=== PATIENT | female | born 1960 | race Caucasian/White ===

== ENCOUNTER 2019-11-28 01:50 | Outpatient (CLI) | payer OTHER, MEDICAID, SELFPAY ==
[2019-11-28 09:36] LABS: HCT 41.3 % (36.0-46.0); Mean Corp. HGB Concentration 33.9 g/dL (32.0-36.0); Mean Corpuscular Volume 94.3 fL (80-95); Mean Platelet Volume 10.7 fL (8.0-11.0); Platelet Count 299 x1000/uL (130-400); RBC 4.38 m/cumm (4.00-5.20); RBC Distribution Width 13.9 % (11.7-14.6); White Blood Cell Count 8.83 k/cumm (4.4-10.8)
[2019-11-28 10:55] LABS: ALT 62 U/L (14-59); AST 39 U/L (15-37); Albumin 4.5 g/dL (3.4-5.0); Alkaline Phosphatase 84 U/L (46-116); Anion Gap 9.9 mmol/L (3-11); BUN 9 mg/dL (7-18); Bilirubin, Total 0.8 mg/dL (0.2-1.0); CO2 29.1 mmol/L (21.0-32.0); CREATININE 0.47 mg/dL (0.55-1.02); Calcium 9.5 mg/dL (8.5-10.1); Calculated LDL 148 mg/dL (<100); Chloride 94 mmol/L (98-107); Cholesterol 272 mg/dL (<200); Glucose 95 mg/dL (74-106); HDL Cholesterol 109 mg/dL (40-60); Potassium 4.4 mmol/L (3.5-5.1); Sodium 133 mmol/L (136-145); Total Protein 8.1 g/dL (6.4-8.2); Triglyceride 78 mg/dL (<150)
== END 2019-11-28 02:10 ==
PROVIDERS: PCP Family Medicine; Visit Provider Family Medicine
DX: Z00.00 Encounter for general adult medical examination without abnormal findings (principal); I10 Essential (primary) hypertension
CPT/HCPCS: 36415; 80053; 80061; 85027

== ENCOUNTER 2020-01-16 18:51 | Emergency (ER) | payer OTHER, MEDICAID, SELFPAY ==
[2020-01-16] VITALS (20 sets, daily range): BP systolic 146–202; BP diastolic 83–107; PULSE 66–98; RESP 13–20; TEMP 36.7; O2SAT 93–97
--- NOTE | 2020-01-16 19:09 | W.ED.GENAD ---
Discharge Plan Disposition Patient Disposition: HOME Condition: Stable Discharge Details Chief Complaint: Chest Pain Clinical Impression: Chest tightness, Episode of syncope, Closed head injury Primary Care Provider: Gaurav Villa ED Provider: Luis Antonio Goodman Home Meds and New Rx's Prescriptions: Continued hydrochlorothiazide 25 mg tablet 25 mg PO QAM Qty: 90 RF: 3 Discharge Instructions Instructions: Chest Pain (ED) Additional Instructions: follow up with your primary care provider this week and discuss outpatient heart rhythm monitoring return to the emergency department for worsening pain, difficulty breathing or if you feel more ill Medical Decision Making <Janki Cruz DO - Last Filed: 01/16/20 20:06> 1920 -- 59-year-old female with a history of hypertension presents after syncopal episode with head and right shoulder injury early this morning followed by chest tightness and dizziness since this afternoon. BP high at home today. EKG on arrival notes a rate of 93, sinus. Frequent PVCs. Less than [address] depression in V4 and V5. No acute ST elevation. No old EKG to compare. Patient appears mildly anxious. She has right parietal small hematoma and tenderness to palpation of right shoulder without deformity. No focal deficits. Differential diagnosis includes dehydration, hypertensive urgency, ACS, PE, electrolyte abnormality, arrhythmia. Will obtain a CT head and cervical spine, CT chest to rule out PE, give fluids and screening labs. 1999 -- Case endorsed to Dr. Goodman to follow-up on labs and imaging and final disposition. ECG Data Attestation: I personally reviewed and interpreted this ECG (s) as follows: Interpretation: Rate of 93, sinus. Frequent PVCs. Less than [address] depression in V4 and V5. No acute ST elevation. OK 172. QTc 443. QRS 90. <Luis Antonio Goodman MD - Last Filed: 01/16/20 22:27> Patient's labs and imaging shows no acute significant findings. She is asymptomatic at this present time. Discussed observation admission vs delta troponin and d/c and after discussion she would like delta troponin. Will continue to monitor. labs unremarkble, walking around without symptoms. Will d/c and have her f/u with pcp to discuss outpatient holter vs zio, return precautions given Imaging Data Radiologic Study: Attestation: I personally reviewed and interpreted this imaging study as follows: Imaging: CT Scan Radiologist's impression: no acute findings on chest CT Radiologic Study #2: Attestation: I personally reviewed and interpreted this imaging study as follows: Imaging: CT Scan Radiologist's impression: no acute findings on head/cspie Lab Data Lab results reviewed: Yes I reviewed the patient's lab results. ECG Data Attestation: I personally reviewed and interpreted this ECG (s) as follows: Prior ECG tracings: available for review Interpretation: sinus rhythm, ectopic ventricular beats, rate of 82, pr 172, no acute st t wave ischemic findings HPI <Janki Cruz DO - Last Filed: 01/16/20 20:06> General Mode of arrival: ambulatory. Date/Time Provider Initiated Documentation: 01/16/20 19:00. Limitations to Documentation: no limitations. Information obtained by: patient. HPI Narrative: Patient is a 59yo female with a history of hypertension who presents to the ED with a complaint of headache and chest pain. Patient states she awoke in the middle the night to use the bathroom and suddenly passed out hitting her right shoulder and the right side of her head on a marble in her bathroom. She states she was able to get up and walk and go back to bed. She states since she awoke this morning she felt dizzy with lack of appetite. She states she attempted to lay down and then developed substernal chest tightness with radiation to her left arm. She denies any fever, cough, shortness of breath, abdominal pain, nausea, vomiting, visual changes, leg pain or swelling, recent travel or recent surgery. She states she was also concerned about her blood pressure this afternoon and states it was higher than usual at 198/126. Related Data Home Medications Medication Instructions Recorded Confirmed hydrochlorothiazide 25 mg tablet 25 mg PO QAM #90 tab 06/26/19 01/16/20 Previous Rx's Medication Instructions Recorded hydrochlorothiazide 25 mg tablet 25 mg PO QAM #90 tab 06/26/19 Allergies Allergy/AdvReac Type Severity Reaction Status Date / Time codeine AdvReac Intermediate vomitting Verified 01/16/20 19:04 General Stated Complaint: Chest Pain ARNALDO: 3 Review of Systems <DO Nba Garzon Last Filed: 01/16/20 20:06> All systems reviewed & are unremarkable except as noted in HPI and below Constitutional Constitutional: Reports as per HPI, Denies chills, Denies fever(s) and Reports headache(s) Eyes Eyes: Denies blurry vision ENT Ears, Nose, Mouth, and Throat: Reports dizziness, Reports headache(s), Denies sore throat and Denies throat swelling Cardiovascular Cardiovascular: Reports chest pain and Denies dyspnea Respiratory Respiratory: Denies cough and Denies dyspnea Gastrointestinal Gastrointestinal: Denies abdominal pain, Denies diarrhea and Denies vomiting Genitourinary Genitourinary: Denies hematuria and Denies dysuria Musculoskeletal Musculoskeletal: Denies back pain and Denies numbness Integumentary/Breasts Skin/Breast: Denies lesions and Denies rash Neurologic Neurologic: Reports dizziness, Reports headache(s), Denies localized weakness and Denies numbness Allergic/Immunologic Allergic/Immunologic: Denies throat swelling PFSH <Janki Cruz DO - Last Filed: 01/16/20 20:06> Medical History (Updated 01/16/20 @ 20:06 by Janki Cruz DO) High blood pressure (Chronic) History of melanoma (Acute) Melanoma of left lateral thigh (Acute) Social History Smoking/Tobacco Use Status: Former Tobacco Use Quit Date: 10/14/08 Second Hand Exposure: Yes Alcohol Intake: current Alcohol Intake frequency: 3 or more drinks per day Alcohol type: hard liquor Substance use type: does not use Caregiver/Support person: No Household members: other Details: 4 Housing: house Pets and animals: Yes Pets and animals: cat(s) Sexually active: Yes Do you think of yourself as: straight/heterosexual Current gender identity: female What is your relationship status?: How often do you talk on the phone with friends or family?: three or more times per week How often do you get together with friends or relatives?: three or more times per week How often do you attend tenriism or scientologist services?: decline to answer Do you belong to any clubs or organized social groups?: no Panel score (0-1 are the most socially isolated patients): 2 What type of physical activity do you participate in: walking Duration: 15-30 minutes/day Frequency: daily Sylvia/Lutheran: OTHER Special sylvia needs: Yes Seatbelt use: always Drive intox or ride w/intox route salesman and driver: No Do you feel safe at home: Yes Do you feel safe in your relationship?: Yes Exam <Janki Cruz DO - Last Filed: 01/16/20 20:06> Const General: cooperative, healthy appearing and anxious Orientation: alert, awake and oriented x3 HENMT Head: normal to inspection Ears: hearing grossly normal bilaterally, external ears normal and TM's normal bilaterally General nose exam: external nose normal Face and sinus: normal facial exam Mouth: oral mucosae normal Teeth and gingiva: dentition normal Throat: posterior oropharynx normal Eyes General: appearance normal, both eyes and all related structures Eyelids: eyelids normal Pupils: PERRL EOM: EOM intact bilaterally Neck Neck: normal visual inspection Lymphatic: no lymphadenopathy noted Chest Chest: normal inspection of the chest Resp Effort & Inspection: normal respiratory effort and able to speak in complete sentences Auscultation: clear to auscultation bilaterally Cardio Rate: regular rate Rhythm: regular rhythm GI Inspection: normal to inspection Palpation: soft, not firm, no guarding, no hepatosplenomegaly, no masses and nontender Auscultation: normal bowel sounds Back/Spine/Pelvis Cervical Spine: No cervical spinal tenderness Thoracic/Lumbar Spine: thoracic and lumbar spine normal to inspection, No thoracic spinal tenderness and No lumbar spinal tenderness Pelvis: no pain with anterior-posterior compression Skin General skin exam: no rashes or lesions noted Neuro General: patient alert and patient awake Cognition: normal cognition Speech: speech normal Gait: normal gait Motor: muscle tone normal throughout Sensory Exam: no sensory deficits noted Extrem Other: Tenderness to palpation right lateral and posterior shoulder. Full range of motion without pain. No deformities noted. No edema, ecchymosis or erythema noted. Right radial pulse intact. Left upper extremity and bilateral lower extremities with normal range of motion without deformity or evidence of trauma. Psych Appearance: grossly normal Mental Status: mental status grossly normal Speech and Movement: speech and movement normal Affect: normal affect Thought Process: normal Course <Janki Cruz DO - Last Filed: 01/16/20 20:06> Vital Signs Vital signs: Vital Signs Temperature 98.1 F 01/16/20 19:00 Pulse 95 H 01/16/20 19:00 Respiratory Rate 18 01/16/20 19:00 Blood Pressure 202/101 H 01/16/20 19:00 Pulse Oximetry 97 01/16/20 19:00 Temperature 98.1 F 01/16/20 19:00 Temperature Source Skin 01/16/20 19:00 Pulse 95 H 01/16/20 19:00 Respiratory Rate 18 01/16/20 19:00 Respiratory Effort Non-Labored 01/16/20 19:05 Blood Pressure 202/101 H 01/16/20 19:00 Pulse Oximetry 97 01/16/20 19:00 End Tidal Co2 6 01/16/20 19:00 Sign Out <Janki Cruz DO - Last Filed: 01/16/20 20:06> Sign Out Data: Sign Out Comment: Case endorsed to Dr. Goodman to follow-up on labs and imaging and final disposition. If work-up negative and patient cleared for discharge, would likely need Holter monitor referral for Zio patch as outpatient. Last updated by Janki Cruz DO at 01/16/20 19:43
[2020-01-16 19:22] LABS: Abs Immature Grans 0.02 k/cumm (0.0-0.09); Absolute Eosinophil Count 0.02 k/cumm (0.0-0.7); Absolute Lymphocyte Count 1.87 k/cumm (1.2-3.4); Absolute Monocyte Count 0.82 k/cumm (0.11-0.7); Absolute Neutrophil Count 8.55 k/cumm (1.2-6.7); Basophils % 0.4; Eosinophils % 0.2; HCT 41.6 % (36.0-46.0); HGB 14.7 g/dL (12.0-15.5); Immature Grans % 0.2 %; Lymphocytes % 16.5; Mean Corp. HGB Concentration 35.3 g/dL (32.0-36.0); Mean Corpuscular Hemoglobin 32.5 pg (27.0-33.0); Mean Corpuscular Volume 91.8 fL (80-95); Mean Platelet Volume 10.2 fL (8.0-11.0); Monocytes % 7.2; Neutrophils % 75.5; Platelet Count 302 x1000/uL (130-400); RBC 4.53 m/cumm (4.00-5.20); RBC Distribution Width 13.3 % (11.7-14.6); White Blood Cell Count 11.32 k/cumm (4.4-10.8)
[2020-01-16 19:23] LABS: Absolute Basophil Count 0.05 k/cumm (0.0-0.2)
--- NOTE | 2020-01-16 19:30 | DI.CT_ITS ---
EXAM: CT CHEST PE CTA CLINICAL HISTORY: chest tightness, syncope. TECHNIQUE: Imaging Protocol: Axial CT angiography was performed with multi-slice acquisition and mu lti-planar and/or 3D reconstructions. CONTRAST MATERIAL: Intravenous: Omnipaque 350 Contrast volume:122 mL COMPARISON: No exams were available for comparison FINDINGS: Pulmonary Arteries: No evidence of filling defect to suggest pulmonary emboli. Tracheobronchial tree: Patent where visualized. Mediastinum and Lauren: No dominant adenopathy or fluid collection. Pulmonary parenchyma: No consolidation or dominant measurable mass. No architectural distortion. Pleura: No effusion or pneumothorax. Heart: The heart is not dilated. No coronary artery calcifications are seen. No pericardial effusion. Aorta: Thoracic aorta non-dilated. No dissection. Upper abdomen: Fatty infiltration of the liver. Bones: Normal. IMPRESSION: No evidence of pulmonary embolism, thoracic aortic dissection or aneurysm. DATA REPOSITORY: All CT scans at this facility are submitted to the National Radiology Data Registry (NRDR) Dose Index Registry (DIR) with the [employer] (ACR). RADIATION OPTIMIZATION: All CT scans at this facility use at least one of these dose optimization te chniques: automated exposure control; mA and/or kV adjustment per patient size (includes targeted exa ms where dose is matched to clinical indication); or iterative reconstruction.
--- NOTE | 2020-01-16 19:30 | DI.CT_ITS ---
EXAM: CT HEAD CERVICAL SPINE WO CLINICAL HISTORY: s/p fall, hematoma R parietal scalp. TECHNIQUE: Imaging Protocol: Axial computed tomography images with coronal and sagittal reformatted images were created and reviewed COMPARISON: No exams were available for comparison FINDINGS: CT Head: Ventricles and Extra axial spaces: Normal in size and morphology for the patient's age. Hemorrhage: None. Cerebral parenchyma: Normal. Midline shift: None. Brainstem/Cerebellum: Normal. Calvarium: Normal. Visualized Paranasal sinuses/Mastoids: Clear. Soft Tissues: Unremarkable. CT Cervical Spine: Bones: No acute fracture or subluxation. Multilevel degenerative changes are present throughout the c ervical spine. Soft Tissues: Unremarkable. Lung Apices: Clear. IMPRESSION: 1. No acute intracranial process. 2. No acute fracture or subluxation in the cervical spine. RADIATION DOSE DELIVERED: DATA REPOSITORY: All CT scans at this facility are submitted to the National Radiology Data Registry (NRDR) Dose Index Registry (DIR) with the [employer] (ACR). RADIATION OPTIMIZATION: All CT scans at this facility use at least one of these dose optimization te chniques: automated exposure control; mA and/or kV adjustment per patient size (includes targeted exa ms where dose is matched to clinical indication); or iterative reconstruction.
[2020-01-16 19:38] LABS: ALT 55 U/L (14-59); AST 39 U/L (15-37); Albumin 4.6 g/dL (3.4-5.0); Alkaline Phosphatase 84 U/L (46-116); Anion Gap 11.2 mmol/L (3-11); BUN 7 mg/dL (7-18); Bilirubin, Total 0.5 mg/dL (0.2-1.0); CO2 29.8 mmol/L (21.0-32.0); CREATININE 0.58 mg/dL (0.55-1.02); Calcium 9.7 mg/dL (8.5-10.1); Chloride 89 mmol/L (98-107); Glucose 105 mg/dL (74-106); Magnesium 1.9 mg/dL (1.8-2.4); Potassium 3.3 mmol/L (3.5-5.1); Sodium 130 mmol/L (136-145); Total Protein 8.8 g/dL (6.4-8.2)
[2020-01-16 19:40] LABS: Troponin I < 0.05 ng/Ml (<0.06)
[2020-01-16] MEDS: Normal Saline 1,000 ML 1000 ML IV (19:41)
[2020-01-16] MEDS: Omnipaque 350 MG/ML 100 ML BTL IJ (19:50)
--- NOTE | 2020-01-16 20:35 | DI.VRAD_ITS ---
PROCEDURE INFORMATION: Exam: CT Head Without Contrast Exam date and time: 01/16/2020 7:35 PM Age: 59 years old Clinical indication: Injury or trauma; Initial encounter; Patient HX: S/P fall, hematoma R parietal scalp TECHNIQUE: Imaging protocol: Computed tomography of the head without contrast. COMPARISON: No relevant prior studies available. FINDINGS: Brain: No intracranial hemorrhage or extra-axial fluid collection. No evidence of mass effect or midline shift. Smith-white matter differentiation is intact. Ventricles: No ventriculomegaly. Bones/joints: No acute osseus lesion or fracture. Sinuses: Unremarkable as visualized. Mastoid air cells: Unremarkable. Soft tissues: Unremarkable. IMPRESSION: No acute intracranial pathology. PROCEDURE INFORMATION: Exam: CT Cervical Spine Without Contrast Exam date and time: 01/16/2020 7:35 PM Age: 59 years old Clinical indication: Injury or trauma; Initial encounter; Patient HX: S/P fall, hematoma R parietal scalp TECHNIQUE: Imaging protocol: Computed tomography images of the cervical spine without contrast. COMPARISON: No relevant prior studies available. FINDINGS: Vertebrae: Vertebral body heights are maintained. No locked or perched facets. Multilevel facet arthropathy. No acute cervical spine fracture. The dens is intact. Atlanto-axial intervals are normal. Discs/Spinal canal/Neural foramina: Multilevel degenerative changes with intervertebral disc height loss and osteophyte formation. No significant spinal stenosis. Soft tissues: Unremarkable. Lungs: Lung apices are clear. IMPRESSION: No acute cervical spine fracture. Dictated and Authenticated by: Sam Mcghee MD. Ordering:ENRIQUE Shearer MD
--- NOTE | 2020-01-16 20:41 | DI.VRAD_ITS ---
PROCEDURE INFORMATION: Exam: CT Angiography Chest With Contrast Exam date and time: 01/16/2020 7:35 PM Age: 59 years old Clinical indication: Other: Chest tightness TECHNIQUE: Imaging protocol: Computed tomographic angiography of the chest with intravenous contrast. 3D rendering: MIP and/or 3D reconstructed images were created by the technologist. COMPARISON: No relevant prior studies available. FINDINGS: Pulmonary arteries: Normal. No pulmonary emboli. Aorta: Unremarkable. No aortic aneurysm. No aortic dissection. Lungs: Unremarkable. No consolidation. No masses. Pleural space: Unremarkable. No pneumothorax. No pleural effusion. Heart: Unremarkable. No cardiomegaly. No pericardial effusion. Liver: Hepatic steatosis. Lymph nodes: Unremarkable. No enlarged lymph nodes. Bones/joints: Unremarkable for age. No acute fracture. Soft tissues: Unremarkable. IMPRESSION: No acute findings. Dictated and Authenticated by: Monae Rodrigez MD. Ordering:ENRIQUE Shearer MD
[2020-01-16 22:19] LABS: Troponin I < 0.05 ng/Ml (<0.06)
--- NOTE | 2020-01-17 03:51 | NUR.NOTE ---
REFERRAL FAXED TO PCP FOR FOLLOW UP CARE Nursing Note:
--- NOTE | 2020-01-17 21:57 | NUR.NOTE ---
REFERRAL FAXED TO PCP FOR FOLLOW UP CARE Nursing Note:
== END 2020-01-16 22:40 | disposition home or self-care (01) ==
PROVIDERS: Physician Assistant; Emergency Provider Emergency Medicine; PCP Family Medicine
DX: R07.89 Other chest pain (principal); R55 Syncope and collapse; S09.90XA Unspecified injury of head, initial encounter; W01.10XA Fall on same level from slipping, tripping and stumbling with subsequent striking against unspecified object, initial encounter; I10 Essential (primary) hypertension
CPT/HCPCS: 71275; 80053; 93005; 96360; 99285; 70450; 72125; 83735; 84484; 85025; 93010; 99284; J3490

== ENCOUNTER 2020-01-26 00:13 | Outpatient (CLI) | payer OTHER, SELFPAY ==
--- NOTE | 2020-01-26 06:45 | DI.NM_ITS ---
APPROVED REPORT Exam: Exercise Treadmill Patient Location: Out-Patient Room/Bed: Stress Nurse: Isabel Edge RN BMI: 24.44 Baseline Rhythm: Sinus Rhythm Comment: Frequent PVC's Indications: Patient presented to the ER on 01/16/2020 after falling in the middle of the night in the bathroom with brief loss of consciousness then midmorning experienced midsternal chest pain (???rock on chest???), left upper arm pain (???like tired muscles from lifting weights???), head fogginess, vi harman changes (???black on sides???) and shakiness which lasted for approximately nine hours then went away on its own. She reports it is now a week later and she is finally starting to feel better overa ll. Medical History Cardiac Medications: Hydrochlorothizide, Lisinopril. Allergies: Codeine Cardiac Risk Factors: FHX of CAD, HTN. Previous Cardiac Procedures: None Pretest Chest Pain Characteristics: None Exercise History: Physically active Physical Disabilities: None Lung Sounds: Clear to auscultation Heart Sounds: Occasionally Irregular. Stress Test Details Test: Exercise stress testing was performed using a Adonay protocol. Nuclear Acquisition: Rest Tc-99m/Stress Tc-99m 1 day Rest Isotope: Tc-99m Sestamibi. Dose: 10.6 Date: 01/26/2020 Injection Time: 1130 Stress Isotope: Tc-99m Sestamibi. Dose: 1325 Date: 01/26/2020 Injection Time: 1325 HR Resting HR Supine: 70 bpm Max Heart Rate (APMHR): 159 bpm Resting HR Standin bpm Target HR (85% APMHR): 135 bpm Max HR Achieved: 162 bpm % of APMHR: 101 HR response to stress: Normal HR response to stress BP Resting BP Supine: 168/110 mmHg Resting BP Standin/110 mmHg Max BP: 210/130 mmHg Comment: DBP hypertensive at baseline. ECG Resting ECG: Sinus Rhythm Ectopy: Frequent PVC's Stress ECG: Sinus Tachycardia ST Change: No significant ST segment changes noted. Arrhythmia: VPC's Recovery ECG: Sinus Rhythm Recovery ST Change: Normal Comment: Recovery: Numerous PVC's and intermitent Ventricular Bigeminy noted. Clinical Reason for Termination: Hypertensive DBP. Stress Symptoms: None Exercise duration: 4 min1 sec Highest Stage Reached: Stage 2: 2.5 mph at 12% grade. Exercise capacity: 5.83 METs Functional Capacity: Moderately diminished capacity Stress ECG Conclusion 1. Patient exercised for 4 minutes (6 METS). Rate-pressure product was 30,000. 2. Patient had no symptoms of ischemia during the stress portion of this exam. 3. The patient had a hypertensive response to stress. Stress Test Summary STAGE Time (mins) Speed (mph) Grade (%) HR BP SYMPTOMS METS Supine 70 168/110 Standing 81 168/110 1 3 1.7 10 150 190/130 4.6 1 min recovery 140 210/130 3 min recovery 104 208/110 6 min recovery 92 170/96 9 min recovery 87 170/118 MPI Conclusion Ejection fraction was 49% with stress. There were no wall motion abnormalities. There is no evidence of ischemia or infarction on the perfusion portion of this exam. This represents a normal SPECT imaging study. Radiologist Interpretation Radiologist agrees with Resource Management Specialist's Interpretation. Radiologist Interpretation by: Flavia Melgar MD Interpretation Date/Time: 01/28/2020 12:19:54
--- NOTE | 2020-01-26 10:34 | DI.US_ITS ---
APPROVED REPORT EXAM: Comprehensive 2D, Doppler, and color-flow Echocardiogram Patient Location: In-Patient Gray Mixing Operator: Kiara Quinones RDCS (AE) Indications: Chest pain, Sycope, HTN Conclusion Left Ventricle : The left ventricle is normal size. The left ventricular systolic function is normal. The left ventricular ejection fraction is within the normal range. There is normal left ventricular wall thickness. There is normal LV segmental wall motion. The left ventricular diastolic function is normal. LVEF is 55-60%. Right Ventricle : The right ventricle is normal size. The right ventricular systolic function is norm al. Atria : The left atrium size is normal. The right atrium size is normal. Valves: There are no hemodynamically significant valvular lesions. Great Vessels : IVC is normal in size and collapses >50% with inspiration. The RVSP is 27.7 mmHg. Please see remainder of report for additional details. There is no prior echocardiogram available for comparison. Wall motion Left Ventricle The left ventricle is normal size. The left ventricular systolic function is normal. The left ventric ular ejection fraction is within the normal range. There is normal left ventricular wall thickness. T here is normal LV segmental wall motion. The left ventricular diastolic function is normal. There is no ventricular septal defect visualized. LVEF is 55-60%. Right Ventricle The right ventricle is normal size. The right ventricular systolic function is normal. Atria The left atrium size is normal. The right atrium size is normal. The interatrial septum is intact wit h no evidence for an atrial septal defect. Aortic Valve The aortic valve is normal in structure. Aortic valve is trileaflet. There is no aortic valvular sten osis. No aortic regurgitation is present. Mitral Valve The mitral valve is normal in structure. No evidence of mitral valve stenosis. Trace mitral regurgita tion. Tricuspid Valve The tricuspid valve is normal in structure. There is no tricuspid valve stenosis. Trace tricuspid reg urgitation. Pulmonic Valve The pulmonary valve is normal in structure. There is no pulmonic valvular stenosis. There is no pulmo ramon valvular regurgitation. Great Vessels The aortic root is normal in size. The ascending aorta is normal in size. IVC is normal in size and c ollapses >50% with inspiration. The RVSP is 27.7 mmHg. Pericardium There is no pericardial effusion. There is no pleural effusion. 2D Dimensions IVSD d PLAX 0.77 cm F: 0.6-1.0 LV Vol A2C d MOD 60.4 mL LVPW d PLAX 0.78 cm F: 0.6 - 1.0 LV Vol A4C d MOD 82.7 mL LVID d PLAX 4.25 cm F: 3.8 - 5.2 LA vol/ BSA A2C s A-L 26.5 mL/m2 LVDs 2.90 cm F: 2.2 - 3.5 LA vol/ BSA A4C s A-L 21.9 mL/m2 Ao Root d 2.71 cm F: 2.7 - 3.3 LA Vol/ BSA Biplane s A-L 24.1 mL/m2 RA Area A4C 12.55 cm2 LA Area A4C s MOD 14.30 cm2 RA Vol/ BSA A4C s A-L 17.4 mL/m2 LA Area A2C s MOD 15.70 cm2 Ao Asc Diam d 3.12 cm F: 2.3 - 3.1 LV EF A4C MOD 53.8 % LV EF Teichholz 58.7 % LV EF A2C MOD 60.9 % LVEF (Roldan's) 56.73 % F: 54 - 74 LV EF Biplane MOD 56.7 % LV Volume 57.98 mL F: 46 - 106 LV Volume Index 34.92 mL/m2 F: 29 - 61 LV Vol Biplane MOD 72.4 mL FS 30.75 % M-Mode TAPSE 1.89 cm (M/F) <1.7 LV Diastology MV E' medial 0.054 (>0.07 m/s) E/A Ratio 0.7 LV E/e MED 10.05 (<14) MV E Vmax 0.54 (0.4-1.3 m/s) MV E' lateral 0.102 (>0.1 m/s) MV A Vmax 0.75 (0.4-1.3 m/s) LV E/e LAT 5.30 (<14) MV E/A Ratio 0.70 MV E/E' medial 10.06 MV E/E' lateral 5.31 Aortic Valve LVOT Area 2.85 cm2 AoV Area Vmax 2.04 cm2 LVOT Vmax 1.00 m/s AoV Area/ BSA (Vmax) 1.23 cm2/m2 LVOT Mean Tyler. 0.60 m/s MEME Mean Tyler. 1.94 cm2 LVOT Peak Grad 4.0 mmHg MEME Mean Tyler. Index 1.16 cm2/m2 LVOT Mean Grad 1.8 mmHg LVOT VTI 0.174 m LVOT Diam s 1.90 cm (M/F) 1.5-2.5 AoV Vmax 1.40 (0.5-1.3 m/s) Velocity Ratio 0.71 AoV Mean Tyler. 0.89 m/s AoV Peak Grad 7.8 mmHg LVOT SV 49.77 mL AoV Mean Grad 3.7 (<5 mmHg) AoV VTI 0.250 (0.18-0.25 m) AoV Area VTI 1.99 (2.5-4.5 cm2) AoV Area/ BSA (VTI) 1.20 cm/m2 Mitral Valve MV DT 278 (160-240 msec) MV PHT 81 msec MV Area PHT 2.73 cm2 Pulmonary Valve PV Vmax 0.96 (0.5-1.5 m/s) RVOT Peak Gr. 1.63 mmHg PV Peak Grad 3.7 mmHg RVOT Mean Gr. 0.80 mmHg PV Mean Grad 1.9 mmHg RVOT VTI 0.150 m PV VTI 0.191 m RVOT Vmax 0.64 m/s Tricuspid Valve TR Peak Grad 24.6 mmHg TR Vmax 2.48 m/s RA Pressure 3.00 mmHg RVSP (TR) 27.7 mmHg
== END 2020-01-26 00:33 ==
PROVIDERS: PCP Family Medicine; Visit Provider Family Medicine
DX: R07.89 Other chest pain (principal); R55 Syncope and collapse; I10 Essential (primary) hypertension; Z82.49 Family history of ischemic heart disease and other diseases of the circulatory system
CPT/HCPCS: 78452; 93017; 93306

== ENCOUNTER 2020-01-28 01:50 | Outpatient (CLI) | payer OTHER, SELFPAY | END 2020-01-28 02:10 | PROVIDERS: PCP Family Medicine; Visit Provider Family Medicine | DX: R07.9 Chest pain, unspecified (principal); I49.1 Atrial premature depolarization; I49.3 Ventricular premature depolarization; R55 Syncope and collapse; R07.2 Precordial pain | CPT/HCPCS: 93225 ==

== ENCOUNTER 2020-02-01 16:29 | Outpatient (CLI) | payer OTHER, SELFPAY ==
--- NOTE | 2020-02-02 08:34 | W.HOLTRPT ---
Date of service: 02/02/20 Time of Service: 08:34 Holter Monitor Report Holter Monitor Note: This is a 48-hour Holter monitor ordered for indication of chest pain. ?The patient was in normal sinus rhythm for the majority of the recording. Average heart rate was 64 bpm. ?There were no episodes of supraventricular tachycardia and rare premature atrial contractions. ?There were no episodes of ventricular tachycardia and occasional (5%) single ventricular ectopic beats. ?There were no episodes of atrial fibrillation, no pauses greater than 3 seconds and no evidence of high degree heart block. ?There were no patient triggered events.
== END 2020-02-01 16:49 ==
PROVIDERS: PCP Family Medicine; Visit Provider Family Medicine
DX: R07.9 Chest pain, unspecified (principal); I49.1 Atrial premature depolarization; I49.3 Ventricular premature depolarization; R55 Syncope and collapse; R07.2 Precordial pain
CPT/HCPCS: 93226

== ENCOUNTER 2020-03-09 03:25 | Outpatient (CLI) | payer OTHER, SELFPAY ==
[2020-03-09 12:23] LABS: Anion Gap 6.3 mmol/L (3-11); BUN 8 mg/dL (7-18); CO2 31.7 mmol/L (21.0-32.0); CREATININE 0.67 mg/dL (0.55-1.02); Calcium 9.8 mg/dL (8.5-10.1); Chloride 95 mmol/L (98-107); Glucose 101 mg/dL (74-106); Potassium 3.8 mmol/L (3.5-5.1); Sodium 133 mmol/L (136-145); TSH (W/Ref FT4) 1.03 uIU/mL (0.36-3.74)
== END 2020-03-09 03:45 ==
PROVIDERS: PCP Family Medicine; Visit Provider Family Medicine
DX: E87.1 Hypo-osmolality and hyponatremia (principal)
CPT/HCPCS: 36415; 80048; 84443

== ENCOUNTER 2020-07-25 00:27 | Outpatient (CLI) | payer OTHER, MEDICAID, SELFPAY ==
--- NOTE | 2020-07-25 07:14 | DI.MAMMO_ITS ---
EXAM: MG MAMMO SCREENING CLINICAL HISTORY: screening,Z12.31 TECHNIQUE: Bilateral full field digital CC and MLO mammographic images were obtained with 3D tomosyn thesis and utilizing computer aided detection (CAD). COMPARISON: Available for comparison. FINDINGS: Masses/Architectural Distortion: None seen. Microcalcifications: There is a new small collection of calcifications in the lower inner quadrant of the right breast. Spot magnification views are recommended for further evaluation. Skin Thickening/Nipple Retraction: None. IMPRESSION: 1. Interval development of a small collection of calcifications in the lower inner quadrant of the ri ght breast. 2. Spot magnification views are requested for further evaluation. BI-RADS Category 0 - Assessment Incomplete: Need additional imaging evaluation Breast Density - Category B - Scattered areas of fibroglandular density A negative radiographic report should not delay biopsy if a dominant or clinically suspicious mass is present. Up to ten percent of cancers are not identified on mammography. A negative report may reinforce clinical impression. Adenosis and dense breasts may obscure an underlying neoplasm. False positive reports average 6 to 10%. Patient will receive a letter notifying them of these results.
== END 2020-07-25 00:47 ==
PROVIDERS: PCP Family Medicine; Visit Provider Family Medicine
DX: Z12.31 Encounter for screening mammogram for malignant neoplasm of breast (principal); R92.1 Mammographic calcification found on diagnostic imaging of breast
CPT/HCPCS: 77063; 77067

== ENCOUNTER 2020-07-27 01:33 | Outpatient (CLI) | payer OTHER, MEDICAID, SELFPAY ==
--- NOTE | 2020-07-27 13:49 | DI.MAMMO_ITS ---
EXAM: MG MAMMO SCREEN CALL BACK UNI CLINICAL HISTORY: F/U MAMMO, INTERVAL DEVELOPMENT COLLECTION OF CALCIFICATIONS. TECHNIQUE: Craniocaudal and mediolateral oblique Full Field Digital Mammography views of the right b reast with Computer Aided Diagnosis. COMPARISON: Comparison with prior examinations. FINDINGS: Mammography/Tomosynthesis: Masses/Architectural Distortion: None seen. Microcalcifictions: Nonspecific calcifications in the posterior medial right breast are again noted. Skin Thickening/Nipple Retraction: None. IMPRESSION: 1. No definite evidence of malignancy is noted. 2. A 3 month follow-up right mammogram is recommended for re-evaluation. 3. The findings were discussed with the patient on the date of the examination. BI-RADS Category 3 - 3 month - Probably Benign Finding: Recommend follow-up mammography in 3 months Breast Density - Category B - Scattered areas of fibroglandular density A negative radiographic report should not delay biopsy if a dominant or clinically suspicious mass is present. Up to ten percent of cancers are not identified on mammography. A negative report may reinforce clinical impression. Adenosis and dense breasts may obscure an underlying neoplasm. False positive reports average 6 to 10%. Patient will receive a letter notifying them of these results.
== END 2020-07-27 01:53 ==
PROVIDERS: PCP Family Medicine; Visit Provider Family Medicine
DX: Z12.31 Encounter for screening mammogram for malignant neoplasm of breast (principal); R92.1 Mammographic calcification found on diagnostic imaging of breast
CPT/HCPCS: 77063; 77067

== ENCOUNTER 2020-10-31 01:22 | Outpatient (CLI) | payer OTHER, MEDICAID, SELFPAY ==
--- NOTE | 2020-10-31 14:13 | DI.MAMMO_ITS ---
EXAM: MG MAMMO DIAGNOSTIC UNI CLINICAL HISTORY: 3 MO F/U, F/U ABNL MAMMO, NON SPECIFIC MEDIAL CALCIFICATIONS. TECHNIQUE: Craniocaudal and mediolateral oblique Full Field Digital Mammography views of the right b reast with Computer Aided Diagnosis followed by Tomosynthesis. COMPARISON: Priors available for comparison. FINDINGS: Mammography/Tomosynthesis: Masses/Architectural Distortion: None seen. Microcalcifictions: No suspicious pleomorphic-type are seen. There is a stable calcification in the l ower inner quadrant of the right breast. Skin Thickening/Nipple Retraction: None. IMPRESSION: 1. No definite evidence of malignancy is noted. 2. A six-month follow-up right mammogram is recommended for re-evaluation. 3. The findings were discussed with the patient on the date of the examination. BI-RADS Category 3 - 6 month - Probably Benign Finding: Recommend follow-up mammography in 6 months Breast Density - Category B - Scattered areas of fibroglandular density A negative radiographic report should not delay biopsy if a dominant or clinically suspicious mass is present. Up to ten percent of cancers are not identified on mammography. A negative report may reinforce clinical impression. Adenosis and dense breasts may obscure an underlying neoplasm. False positive reports average 6 to 10%. Patient will receive a letter notifying them of these results.
== END 2020-10-31 01:42 ==
PROVIDERS: PCP Family Medicine; Visit Provider Family Medicine
DX: Z12.31 Encounter for screening mammogram for malignant neoplasm of breast (principal); R92.1 Mammographic calcification found on diagnostic imaging of breast
CPT/HCPCS: 77061; 77065; G0279

== ENCOUNTER 2021-05-01 01:55 | Outpatient (CLI) | payer OTHER, MEDICAID, SELFPAY ==
--- NOTE | 2021-05-01 13:35 | DI.MAMMO_ITS ---
Exam(s) MAMMO DIAGNOSTIC UNI EXAM: MAMMO DIAGNOSTIC UNI CLINICAL HISTORY: 3-6 MOF /U, f/u abnl mammo, r92.8,z09. TECHNIQUE: Unilateral spot mammographic images were obtained with 3D Tomosynthesistechnique and util izing computer aided detection (CAD). Also performed 2D spot Mag view of right breast microcalcificat ions COMPARISON: Prior mammograms dating back to 2013, the most recent being October 2020. FINDINGS: Previously described microcalcifications in the medial aspect of the right breath continue to exhibit benign appearance. No other significant focal right breast findings. IMPRESSION: Continued stable appearance of the microcalcifications in the right breast. Appropriate follow-up is to keep the patient yearly mammogram schedule, this implying the next bilateral mammogram would be i n 6 months, with earlier imaging if a self detected breast changes noted The patient was informed of the findings and follow-up recommendations prior to leaving the [facility] today. BI-RADS Category 3 - 6 month - Probably Benign Finding: Recommend follow-up mammography in 6 months Breast Density - Category B - Scattered areas of fibroglandular density Breast density Category C or D implies that the patient has dense breast tissue. Dense breast tissue can make it harder to find cancer on a mammogram. Dense breast tissue is also associated with an incr eased risk of breast cancer. This information about the result of the mammogram report was provided to the patient to raise their awareness. Use this report when you speak with the patient about their risks for breast cancer, which includes their family history. At that time, you may recommend additional screening tests (Ultrasoun d or MRI) as these tests may add significant information. A negative radiographic report should not delay biopsy if a dominant or clinically suspicious mass is present. Up to ten percent of cancers are not identified on mammography. A negative report may reinforce clinical impression. Adenosis and dense breasts may obscure an underlying neoplasm. False positive reports average 6 to 10%. Patient will receive a letter notifying them of these results.
== END 2021-05-01 02:15 ==
PROVIDERS: PCP Family Medicine; Visit Provider Family Medicine
DX: Z09 Encounter for follow-up examination after completed treatment for conditions other than malignant neoplasm; R92.8 Other abnormal and inconclusive findings on diagnostic imaging of breast; R92.0 Mammographic microcalcification found on diagnostic imaging of breast
CPT/HCPCS: 77061; 77065; G0279

== ENCOUNTER 2021-07-21 11:49 | Outpatient (REF) | payer OTHER, MEDICAID, SELFPAY ==
--- NOTE | 2021-07-21 09:30 | PAPFT_PTH ---
PATIENT: Damián Cárdenas LOC: [facility] U#:[id number] AGE/SX: 61/F ROOM: RE07/21/[address]: Katie Salazar : 1960 BED: DIS: 07/21/2021 SPEC #: [id number] RECD: 07/21/21 13:13 STATUS: SOLE REQ #: [id number] ARGENIS: 07/21/21 09:[address]: Katie Salazar DEPT: [facility] Cytology RECD BY: Maye Lake Tissues: 1 - CX/ENDOCX FOR PAP SMEARS Procedures: PAP THIN PREP/UVM Screening Comments: [id number] (UNSATISFACTORY FOR EVALUATION)
== END 2021-07-21 11:50 | disposition home or self-care (01) ==
LOC: LBN 11:49
PROVIDERS: PCP Family Medicine; Visit Provider Family Medicine
DX: Z12.4 Encounter for screening for malignant neoplasm of cervix (principal); R87.615 Unsatisfactory cytologic smear of cervix
CPT/HCPCS: 88142

== ENCOUNTER 2021-10-25 10:38 | Outpatient (REF) | payer OTHER, SELFPAY ==
--- NOTE | 2021-10-25 10:15 | PAPFT_PTH ---
PATIENT: Damián Cárdenas LOC: [facility] #:[id number] AGE/SX: 61/F ROOM: RE10/25/[address]: Katie Salazar : 1960 BED: DIS: 10/25/2021 SPEC #: [id number] RECD: 10/25/21 13:09 STATUS: SOLE GUY #: [id number] ARGENIS: 10/25/21 10:[address]: Katie Salazar DEPT: [facility] Cytology RECD BY: Maye Lake Tissues: 1 - CX/ENDOCX FOR PAP SMEARS Procedures: PAP THIN PREP/UVM Screening HPV DNA PROBE Comments: [id number]
== END 2021-10-25 10:39 | disposition home or self-care (01) ==
LOC: LBN 10:38
PROVIDERS: PCP Family Medicine; Visit Provider Family Medicine
DX: Z12.4 Encounter for screening for malignant neoplasm of cervix (principal); Z11.51 Encounter for screening for human papillomavirus (HPV)
CPT/HCPCS: 88142; 87624

== ENCOUNTER 2022-01-08 01:40 | Outpatient (CLI) | payer OTHER, SELFPAY ==
--- NOTE | 2022-01-08 14:20 | DI.MAMMO_ITS ---
Exam(s) MAMMO DIAGNOSTIC BI EXAM: MAMMO DIAGNOSTIC BI CLINICAL HISTORY: f/u abnl mammo rt breast, 6 mo f/u,r92.8 TECHNIQUE: Mammograms were interpreted according to the usual protocol including computer analysis w [employer] CAD system, tomosynthesis and C-view imaging. COMPARISON: 2013 through 2020 FINDINGS: The breasts are composed of scattered fibroglandular densities, Breast Density category B. No suspicious masses or suspicious microcalcifications are seen. Stable coarse, benign-appearing pio cifications lower inner quadrant right breast. Incidental vascular calcifications. No skin thickening or abnormal axillary lymph nodes are seen. There has been no significant change from prior exams. IMPRESSION: BI-RADS Cat 2 - Benign Findings Yearly screening mammography is recommended. Breast Density - Category B, scattered fibroglandular densities. A negative radiographic report should not delay biopsy if a dominant or clinically suspicious mass is present. Up to ten percent of cancers are not identified on mammography. A negative report may reinforce clinical impression. Adenosis and dense breasts may obscure an underlying neoplasm. False positive reports average 6 to 10%. Patient will receive a letter notifying them of these results.
== END 2022-01-08 02:00 ==
PROVIDERS: PCP Family Medicine; Visit Provider Family Medicine
DX: R92.8 Other abnormal and inconclusive findings on diagnostic imaging of breast (principal); N60.81 Other benign mammary dysplasias of right breast
CPT/HCPCS: 77062; 77066; G0279

== ENCOUNTER 2022-02-08 02:50 | Outpatient (CLI) | payer OTHER, SELFPAY ==
[2022-02-08 12:47] LABS: Anion Gap 8.2 mmol/L (3-11); BUN 9 mg/dL (7-18); CO2 27.8 mmol/L (21.0-32.0); CREATININE 0.6 mg/dL (0.55-1.02); Calcium 9.2 mg/dL (8.5-10.1); Calculated LDL 146 mg/dL (<100); Chloride 95 mmol/L (98-107); Cholesterol 250 mg/dL (<200); Glucose 93 mg/dL (74-106); HDL Cholesterol 76 mg/dL (40-60); Potassium 4.3 mmol/L (3.5-5.1); Sodium 131 mmol/L (136-145); Triglyceride 144 mg/dL (<150)
== END 2022-02-08 02:51 | disposition home or self-care (01) ==
PROVIDERS: PCP Family Medicine; Visit Provider Family Medicine
DX: Z00.00 Encounter for general adult medical examination without abnormal findings (principal); I10 Essential (primary) hypertension
CPT/HCPCS: 36415; 80048; 80061

== ENCOUNTER 2023-01-14 02:09 | Outpatient (CLI) | payer OTHER, SELFPAY ==
--- NOTE | 2023-01-14 07:45 | DI.MAMMO_ITS ---
Exam(s) MAMMO SCREENING EXAM: MAMMO SCREENING CLINICAL HISTORY: screening,z12.39. TECHNIQUE: Bilateral full field digital CC and MLO mammographic images were obtained with 3D tomosyn thesis and utilizing computer aided detection (CAD). COMPARISON: Prior mammograms were reviewed. FINDINGS: No new findings in the left breast. In the right breast on the CC view there is suggestion of a nodular density located 3 cm from the nip ple measuring 5 x 4 mm. Further imaging recommended. There are no malignant-appearing microcalcification groups is region or elsewhere in either breast There is no significant architectural distortion nor skin thickening-retraction. IMPRESSION: 1. No radiographic evidence of malignancy in left breast. 2. Asymmetric density-possible nodule in the right breast as described above. Spot compression CC vi ew and ultrasound recommended. BI-RADS Category 0 - Assessment Incomplete: Need additional imaging evaluation Breast Density - Category B - Scattered areas of fibroglandular density Breast density Category C or D implies that the patient has dense breast tissue. Dense breast tissue can make it harder to find cancer on a mammogram. Dense breast tissue is also associated with an incr eased risk of breast cancer. This information about the result of the mammogram report was provided to the patient to raise their awareness. Use this report when you speak with the patient about their risks for breast cancer, which includes their family history. At that time, you may recommend additional screening tests (Ultrasoun d or MRI) as these tests may add significant information. A negative radiographic report should not delay biopsy if a dominant or clinically suspicious mass is present. Up to ten percent of cancers are not identified on mammography. A negative report may reinforce clinical impression. Adenosis and dense breasts may obscure an underlying neoplasm. False positive reports average 6 to 10%. Patient will receive a letter notifying them of these results.
== END 2023-01-14 02:29 ==
LOC: DI 02:09
PROVIDERS: PCP Family Medicine; Visit Provider Family Medicine
DX: Z12.31 Encounter for screening mammogram for malignant neoplasm of breast (principal); R92.8 Other abnormal and inconclusive findings on diagnostic imaging of breast
CPT/HCPCS: 77063; 77067

== ENCOUNTER 2023-01-17 02:37 | Outpatient (CLI) | payer OTHER, SELFPAY ==
--- NOTE | 2023-01-17 | DI.US_ITS ---
Exam(s) MG MAMMO SCREEN CALL BACK UNI US BREAST RT COMPLETE EXAM: MG MAMMO SCREEN CALL BACK UNI-RIGHT AND COMPLETE RIGHT BREAST ULTRASOUND CLINICAL HISTORY: F/U MAMMO, ASYMMETRIC DENSITY, POSSIBLE NODULE RT BREAST. TECHNIQUE: Unilateral spot mammographic images obtained with 3D tomosynthesisand utilizing computer aided detection (CAD). . Complete RIGHT breast Ultrasound was also performed, including all 4 quadrants, the retroareolar mihir on, and the ipsilateral axilla. COMPARISON: Prior mammograms were reviewed. This additional imaging was performed due to findings described on the recent screening mammogram of 01/14/2023. FINDINGS: DIAGNOSTIC MAMMOGRAM: Additional mammographic views performed todayrender this area less concerning.Nodular density appears to dissipate on this additional mammographic view. COMPLETE RIGHT BREAST ULTRASOUND: Ultrasound performed today reveals no evidence of solid or significant cystic lesions in all 4 quadra nts of the right breast.. Scanning of the ipsilateral axilla reveals no significant adenopathy. IMPRESSION: 1. No radiographic evidence of malignancy. 2. Negative complete right breast ultrasound Appropriate follow-up is repeat right breast mammogram in 6 months.. The patient was informed of these findings and recommendations prior to leaving the department today. BI-RADS Category 3 - 6 month - Probably Benign Finding: Recommend follow-up mammography in 6 months Breast Density - Category B - Scattered areas of fibroglandular density Breast density Category C or D implies that the patient has dense breast tissue. Dense breast tissue can make it harder to find cancer on a mammogram. Dense breast tissue is also associated with an incr eased risk of breast cancer. This information about the result of the mammogram report was provided to the patient to raise their awareness. Use this report when you speak with the patient about their risks for breast cancer, which includes their family history. At that time, you may recommend additional screening tests (Ultrasoun d or MRI) as these tests may add significant information. A negative radiographic report should not delay biopsy if a dominant or clinically suspicious mass is present. Up to ten percent of cancers are not identified on mammography. A negative report may reinforce clinical impression. Adenosis and dense breasts may obscure an underlying neoplasm. False positive reports average 6 to 10%. Patient will receive a letter notifying them of these results.
== END 2023-01-17 02:57 ==
LOC: DI 02:37
PROVIDERS: PCP Family Medicine; Visit Provider Family Medicine
DX: Z12.31 Encounter for screening mammogram for malignant neoplasm of breast (principal); R92.8 Other abnormal and inconclusive findings on diagnostic imaging of breast; N64.59 Other signs and symptoms in breast
CPT/HCPCS: 76642; 77063; 77067

== ENCOUNTER → 2023-07-23 00:01 | Outpatient (CLI) | payer MEDICARE, OTHER, SELFPAY ==
--- NOTE | 2023-07-23 | DI.MAMMO_ITS ---
Exam(s) MG MAMMO DIAGNOSTIC UNI EXAM: MAMMO DIAGNOSTIC UNI CLINICAL HISTORY: F/U ABNL MAMMO, R92.8, 6 MO F/U. TECHNIQUE: Craniocaudal and mediolateral oblique Full Field Digital Mammography views of the right b reast with Computer Aided Diagnosis followed by Tomosynthesis. COMPARISON: No exams were available for comparison FINDINGS: Mammography/Tomosynthesis: Masses/Architectural Distortion: None seen. Microcalcifictions: No suspicious pleomorphic-type are seen. Skin Thickening/Nipple Retraction: None. IMPRESSION: 1. No evidence of malignancy is noted. 2. Unless there is more urgent need, follow-up screening mammography is recommended, as per [employer] guidelines. 3. The findings were discussed with the patient on the date of the examination. BI-RADS Category 1 - Negative Breast Density - Category B - Scattered areas of fibroglandular density Breast density Category C or D implies that the patient has dense breast tissue. Dense breast tissue can make it harder to find cancer on a mammogram. Dense breast tissue is also associated with an incr eased risk of breast cancer. This information about the result of the mammogram report was provided to the patient to raise their awareness. Use this report when you speak with the patient about their risks for breast cancer, which includes their family history. At that time, you may recommend additional screening tests (Ultrasoun d or MRI) as these tests may add significant information. A negative radiographic report should not delay biopsy if a dominant or clinically suspicious mass is present. Up to ten percent of cancers are not identified on mammography. A negative report may reinforce clinical impression. Adenosis and dense breasts may obscure an underlying neoplasm. False positive reports average 6 to 10%. Patient will receive a letter notifying them of these results.
== END ==
PROVIDERS: PCP Family Medicine; Visit Provider Family Medicine
DX: Z12.31 Encounter for screening mammogram for malignant neoplasm of breast (principal); R92.8 Other abnormal and inconclusive findings on diagnostic imaging of breast
CPT/HCPCS: 77061; 77065; G0279

== ENCOUNTER → 2023-09-11 02:47 | Outpatient (CLI) | payer MEDICARE, SELFPAY ==
--- NOTE | 2023-09-11 08:30 | DI.DEXA_ITS ---
Exam(s) XR DEXA BONE DENSITY W/WO DAJUAN EXAM: XR DEXA BONE DENSITY W/WO DAJUAN CLINICAL HISTORY: screening, menopausal disorder, N95.9 TECHNIQUE: COMPARISON: No exams were available for comparison FINDINGS: Lateral Spine Image: Unremarkable. No compression deformities identified. Left hip: Total T-Score: -1.3 Total Z-Score: 0.0 T- and Z-scores: Within normal limits. Lumbar Spine: Total T-Score: -0.2 Total Z-Score: 1.6 T- and Z-scores: Within normal limits. IMPRESSION: No evidence of osteoporosis.
== END ==
PROVIDERS: PCP Family Medicine; Visit Provider Family Medicine
DX: N95.9 Unspecified menopausal and perimenopausal disorder (principal); Z13.820 Encounter for screening for osteoporosis
CPT/HCPCS: 77080

== ENCOUNTER 2023-10-17 04:09 | Outpatient (CLI) | payer MEDICARE, SELFPAY ==
[2023-10-17 13:29] LABS: Anion Gap 5.1 mmol/L (3-11); BUN 6 mg/dL (7-18); CO2 29.9 mmol/L (21.0-32.0); CREATININE 0.6 mg/dL (0.55-1.02); Calcium 9.4 mg/dL (8.5-10.1); Calculated LDL 138 mg/dL (<100); Chloride 93 mmol/L (98-107); Cholesterol 233 mg/dL (<200); Estimated GFR 99.55 (mL/min/1.73m2); Glucose 100 mg/dL (74-106); HDL Cholesterol 80 mg/dL (40-60); Potassium 4.1 mmol/L (3.5-5.1); Sodium 128 mmol/L (136-145); Triglyceride 77 mg/dL (<150)
== END 2023-10-17 04:10 | disposition home or self-care (01) ==
PROVIDERS: PCP Family Medicine; Visit Provider Family Medicine
DX: I10 Essential (primary) hypertension (principal); Z13.6 Encounter for screening for cardiovascular disorders
CPT/HCPCS: 36415; 80048; 80061

== ENCOUNTER 2023-11-07 10:49 | Outpatient (REF) | payer MEDICARE, SELFPAY | END 2023-11-07 10:50 | disposition home or self-care (01) | LOC: LBN 10:49 | PROVIDERS: PCP Family Medicine; Visit Provider Family Medicine | DX: J02.9 Acute pharyngitis, unspecified (principal) | CPT/HCPCS: 87070 ==

== ENCOUNTER 2024-01-02 05:38 | Outpatient (CLI) | payer MEDICARE, SELFPAY ==
[2024-01-02 12:25] LABS: Anion Gap 9.6 mmol/L (3-11); BUN 10 mg/dL (7-18); CO2 28.4 mmol/L (21.0-32.0); CREATININE 0.7 mg/dL (0.55-1.02); Calcium 9.5 mg/dL (8.5-10.1); Chloride 101 mmol/L (98-107); Estimated GFR 95.92 (mL/min/1.73m2); Glucose 81 mg/dL (74-106); Potassium 3.8 mmol/L (3.5-5.1); Sodium 139 mmol/L (136-145)
== END 2024-01-02 05:39 | disposition home or self-care (01) ==
LOC: LOS 05:38
PROVIDERS: PCP Family Medicine; Visit Provider Family Medicine
DX: I10 Essential (primary) hypertension (principal); E87.1 Hypo-osmolality and hyponatremia
CPT/HCPCS: 36415; 80048

== ENCOUNTER → 2024-01-27 05:21 | Outpatient (CLI) | payer MEDICARE, SELFPAY ==
--- NOTE | 2024-01-27 15:25 | DI.MAMMO_ITS ---
Exam(s) MAMMO SCREENING EXAM: MAMMO SCREENING CLINICAL HISTORY: screening,z12.39 TECHNIQUE: Bilateral full field digital CC and MLO mammographic images were obtained with 3D tomosyn thesis and utilizing computer aided detection (CAD). COMPARISON: Available for comparison. FINDINGS: Masses/Architectural Distortion: Stable asymmetric density in the retroareolar region of the right br east. No suspicious masses or areas of architectural distortion are seen. Microcalcifications: No suspicious pleomorphic-type are seen. Skin Thickening/Nipple Retraction: None. IMPRESSION: 1. No significant interval change with no specific features of malignancy noted. 2. Unless there is more urgent need, screening mammography is recommended, as per [employer] guidelines. BI-RADS Category 2 - Benign Findings Breast Density - Category B - Scattered areas of fibroglandular density Breast density category C or D implies that the patient has dense breast tissue. Dense breast tissue is very common and is not abnormal but dense breast tissue can make it harder to find cancer on a ma mmogram. Also, dense breast tissue may increase their breast cancer risk. This information about the result of the mammogram report was provided to the patient to raise their awareness. Use this report when you speak with the patient about their risks for breast cancer, which includes their family hist ory. At that time, you may recommend for more screening tests (Ultrasound or MRI) as they might be us eful based on their risk. A negative radiographic report should not delay biopsy if a dominant or clinically suspicious mass is present. Up to ten percent of cancers are not identified on mammography. A negative report may reinforce clinical impression. Adenosis and dense breasts may obscure an underlying neoplasm. False positive reports average 6 to 10%. Patient will receive a letter notifying them of these results.
== END ==
PROVIDERS: PCP Family Medicine; Visit Provider Family Medicine
DX: Z12.31 Encounter for screening mammogram for malignant neoplasm of breast (principal); R92.8 Other abnormal and inconclusive findings on diagnostic imaging of breast
CPT/HCPCS: 77063; 77067

== ENCOUNTER 2025-01-27 01:49 | Outpatient (CLI) | payer MEDICARE, SELFPAY | END 2025-01-27 02:09 | PROVIDERS: PCP Family Medicine; Visit Provider Family Medicine | DX: Z12.31 Encounter for screening mammogram for malignant neoplasm of breast (principal); R92.323 Mammographic fibroglandular density, bilateral breasts | CPT/HCPCS: 77063; 77067 ==

== ENCOUNTER 2025-04-02 01:14 | Outpatient (CLI) | payer MEDICARE, SELFPAY ==
[2025-04-02 12:50] LABS: ESR 27 mm/hr (0-30)
[2025-04-02 12:51] LABS: Anion Gap 9.4 mmol/L (3-11); BUN 11 mg/dL (7-18); CO2 27.6 mmol/L (21.0-32.0); CREATININE 0.7 mg/dL (0.55-1.02); Chloride 95 mmol/L (98-107); Estimated GFR 94.73 (mL/min/1.73m2); Glucose 100 mg/dL (74-106); Potassium 4.2 mmol/L (3.5-5.1); Sodium 132 mmol/L (136-145)
[2025-04-02 15:41] LABS: Uric Acid 2.9 mg/dL (2.6-6.0)
[2025-04-02 22:32] LABS: Rheumatoid Factor <8.6 IU/mL (<12.0)
[2025-04-05 09:36] LABS: Anaplasma phagocytophilum Negative (Negative); B. miyamotoi PCR Negative (Negative); Babesia divergens/MO-1 Negative (Negative); Babesia duncani Negative (Negative); Babesia microti Negative (Negative); Ehrlichia chaffeensis Negative (Negative); Ehrlichia ewingii/canis Negative (Negative); Ehrlichia muris eauclairensis Negative (Negative)
[2025-04-05 14:10] LABS: ANA Interpretation Negative (Negative)
[2025-04-06 13:55] LABS: Lyme Ab w Rflx to Lyme Confirm Negative (Negative)
== END 2025-04-02 01:15 | disposition home or self-care (01) ==
LOC: LOS 01:18
PROVIDERS: PCP Family Medicine; Visit Provider Family Medicine
DX: M25.50 Pain in unspecified joint (principal); I10 Essential (primary) hypertension
CPT/HCPCS: 36415; 80048; 85652; 87798; 84550; 86038; 86431; 86618

== ENCOUNTER 2025-04-08 10:33 | Outpatient (CLI) | payer MEDICARE, SELFPAY ==
[2025-04-08 11:27] LABS: C-Reactive Protein 8.54 mg/dL (<or=0.5)
== END 2025-04-08 10:34 | disposition home or self-care (01) ==
LOC: LBO 10:33
PROVIDERS: PCP Family Medicine; Visit Provider Nurse Practitioner Family
DX: R52 Pain, unspecified (principal)
CPT/HCPCS: 36415; 86140

== ENCOUNTER 2025-04-14 20:52 | Outpatient (REF) | payer MEDICARE, SELFPAY ==
[2025-04-14 21:01] LABS: Abs Immature Grans 0.08 10^3/uL (0.0-0.06); HCT 33.8 % (36.0-46.0); HGB 11.3 g/dL (11.2-15.7); Immature Grans % 0.6 %; MCH 28.5 pg (27.0-33.0); MCHC 33.4 % (32.0-36.0); MCV 85 fL (80-95); MPV 9.8 fL (8.0-11.0); Platelet Count 592 10^3/uL (130-400); RBC 3.97 10^6/uL (3.93-5.22); RDW 13.5 % (11.7-14.6); RDW-SD 41.5 fL; WBC 13.33 10^3/uL (4.4-10.8)
== END 2025-04-14 20:53 | disposition home or self-care (01) ==
LOC: LBN 20:52
PROVIDERS: PCP Family Medicine; Visit Provider Family Medicine
DX: M35.3 Polymyalgia rheumatica (principal)
CPT/HCPCS: 85025

== ENCOUNTER 2025-05-25 03:27 | Outpatient (CLI) | payer MEDICARE, SELFPAY ==
[2025-05-25 12:22] LABS: Abs Immature Grans 0.08 10^3/uL (0.0-0.06); HCT 37.4 % (36.0-46.0); HGB 12.2 g/dL (11.2-15.7); Immature Grans % 0.8 %; MCH 29.8 pg (27.0-33.0); MCHC 32.6 % (32.0-36.0); MCV 91 fL (80-95); MPV 10.5 fL (8.0-11.0); Platelet Count 315 10^3/uL (130-400); RBC 4.09 10^6/uL (3.93-5.22); RDW 18.8 % (11.7-14.6); RDW-SD 62.5 fL; WBC 10.61 10^3/uL (4.4-10.8)
[2025-05-25 12:28] LABS: ESR 1 mm/hr (0-30)
[2025-05-25 13:40] LABS: ALT 27 U/L (14-59); AST 16 U/L (15-37); Albumin 3.8 g/dL (3.4-5.0); Alkaline Phosphatase 62 U/L (46-116); Anion Gap 3.9 mmol/L (3-11); BUN 14 mg/dL (7-18); Bilirubin, Total 0.4 mg/dL (0.2-1.0); CO2 33.1 mmol/L (21.0-32.0); Calcium 9.3 mg/dL (8.5-10.1); Chloride 100 mmol/L (98-107); Estimated GFR 98.32 (mL/min/1.73m2); Ferritin 189 ng/mL (8-252); Glucose 97 mg/dL (74-106); Potassium 3.8 mmol/L (3.5-5.1); Sodium 137 mmol/L (136-145); Total Protein 7.0 g/dL (6.4-8.2)
[2025-05-25 14:43] LABS: LDH 169 U/L (81-234)
== END 2025-05-25 03:28 | disposition home or self-care (01) ==
LOC: LOS 03:27
PROVIDERS: PCP Family Medicine; Visit Provider Family Medicine
DX: M35.3 Polymyalgia rheumatica (principal); E87.1 Hypo-osmolality and hyponatremia; I10 Essential (primary) hypertension; D64.9 Anemia, unspecified
CPT/HCPCS: 36415; 80053; 85652; 82728; 83615; 85025

== ENCOUNTER 2025-06-22 08:19 | Outpatient (CLI) | payer MEDICARE, SELFPAY ==
[2025-06-22 14:05] LABS: C-Reactive Protein < 0.50 mg/dL (<or=0.5)
[2025-06-22 14:14] LABS: ESR 4 mm/hr (0-30)
== END 2025-06-22 08:20 | disposition home or self-care (01) ==
LOC: LOS 08:19
PROVIDERS: PCP Family Medicine; Visit Provider Family Medicine
DX: M35.3 Polymyalgia rheumatica (principal)
CPT/HCPCS: 36415; 85652; 86140